=== PATIENT | male | born 1955 | race Caucasian/White ===

== ENCOUNTER 2023-02-26 18:59 | Emergency (ER) | payer MEDICARE, SELFPAY ==
[2023-02-26 19:02] VITALS: BP 106/73; PULSE 81; RESP 18; TEMP 36.3; O2SAT 98; BMI 27.9
--- NOTE | 2023-02-26 21:00 | CT_ITS ---
STUDY: CT BRAIN WITHOUT CONTRAST REASON FOR EXAM: Male, 67 years old. trauma Individualized dose optimization techniques were used for this CT. TECHNIQUE: Transaxial CT imaging of the brain was performed without administration of intravenous contrast material. COMPARISON: None FINDINGS: There are calcifications around the carotid artery. These are noted in the cavernous carotid arteries. Normal calvarium. Normal soft tissues. There is mild cerebral atrophy with widening of the extra-axial spaces and ventricular dilatation. There are areas of decreased attenuation within the white matter tracts of the supratentorial brain, consistent with microvascular disease changes. Normal basal ganglia and thalami. Normal brainstem. There is mild cerebellar atrophy. There is no intracranial hemorrhage. There are no findings of an acute ischemic infarction. There is sinus disease. ASPECTS Score for Acute Strokes: 05/08 CT/Brain/Head without Contrast IMPRESSION: There are no acute findings. Chronic involutional changes of the brain. Electronically Signed: Dileep Verdin MD at 21:24 EDT ,
--- NOTE | 2023-02-26 21:00 | ED.VIS.FALL ---
HPI HPI - Fall History of Present Illness Chief Complaint: Fall Informant: patient and family Occured/Mechanism Occurred: Hours (2) Mechanism/Context: Yes same level fall Narrative Narrative: Patient was playing a game at [employer], he was indoors on a hard floor, he reached for a ball and in doing so fell backwards hitting the back of his head on the floor very hard. He was dazed did not lose consciousness. In the 30 minutes or so after that, he was walking a little unsteady, had a headache, feeling dazed and poorly in general no vomiting or vision changes or focal neurologic symptoms. He states he is feeling better now. Takes no antiplatelet or anticoagulant medications. Denies any other injury. [facility] Medical History (Updated 02/26/23 @ 22:[address] Sergo Thakkar MD) Diabetes HTN (hypertension) Home Medications atorvastatin 20 mg tablet 20 mg PO QHS 02/26/23 [History Last Taken Unknown] dapagliflozin propanediol 5 mg tablet (Farxiga) 5 mg PO DAILY 02/26/23 [History Last Taken Unknown] lisinopril 2.5 mg tablet 2.5 mg PO DAILY 02/26/23 [History Last Taken Unknown] metformin 1,000 mg tablet 1,000 mg PO BID 02/26/23 [History Last Taken Unknown] Allergy/AdvReac Type Severity Reaction Status Date / Time No Known Allergies Allergy Verified 02/26/23 19:02 Surgical History (Updated 02/26/23 @ 21:14 by Valery Dawn) Hx of cholecystectomy Social History Smoking Status: Never smoker [facility] ED Constitutional Constitutional ED: Reports malaise; Denies chills or fever(s) Eyes Eyes: Denies change in vision or diplopia ENT ENT ED: Reports as per HPI; Denies ear pain, epistaxis, facial pain or rhinorrhea Cardiovascular Cardiovascular: Denies chest pain or palpitations Respiratory/Chest Respiratory/Chest: Denies cough or dyspnea Gastrointestinal Gastrointestinal: Denies abdominal pain, diarrhea, melena, nausea or vomiting Genitourinary Genitourinary ED: Denies dysuria or hematuria Musculoskeletal Musculoskeletal: Denies back pain, extremity pain or neck pain Integumentary Denies abscess, Abrasions, laceration or rash Neurologic Neurologic: Reports headache(s); Denies confusion, paresthesias or weakness EXAM Physical Exam Const Vital Signs: 02/26/23 19:02 Temperature 97.4 F L Temperature Source Temporal Pulse Rate 81 Respiratory Rate 18 Blood Pressure 106/73 Blood Pressure Mean 84 Pulse Ox 98 Oxygen Delivery Method Room Air Positive well nourished and well developed General Appearance ED: well developed and NAD HEENT Reports TM's clear and nasal mucous membranes and turbinates normal trauma and hematoma Hematoma Size: 2 cm, occipital Face and Sinus: Negative for facial tenderness Tympanic Membrane ED: Yes TM's clear Eyes PERRL and EOMs intact bilaterally Visual Acuity: other Other Details: no entrapment or pain with extraocular movements Neck full ROM and supple General: Negative for tenderness Chest Wall inspection of chest normal and palpation of chest normal Chest: symmetrical chest wall rise; Negative for crepitus or tenderness Resp normal respiratory effort and clear to auscultation bilaterally Percussion: other equal BS bilat Cardio no murmurs Rate: regular rate Rhythm: regular rhythm Back/Spine normal ROM Cervical Spine: Negative for cervical spine tenderness Thoracic Spine / Upper Back: Negative for thoracic spinal tenderness Lumbar Spine / Lower Back: Negative for lumbar spinal tenderness Extremity normal to inspection and full ROM General Extremety ED: Negative for tenderness Neuro oriented x3, CN's II-XII intact bilaterally, moves all extremities, no focal motor deficits and no sensory deficits noted [place] Coma Scale: document GCS findings Spontaneous Obeys Commands Oriented 15 Sensorium / Orientation: awake and alert Psych mental status grossly normal and thought process normal Skin Skin Narrative: Closed hematoma occipital scalp, without crepitance or depression Lesions: no lesions Rashes: no rashes MDM MDM MDM Narrative Medical decision making narrative: Patient older than 65, had some symptoms of concussion that are better, but I think doing a CT is reasonable given the hematoma on the occipital scalp. I reviewed the images and the report which I agree with, no acute traumatic abnormalities. Patient reassured, given Tylenol, and appropriate discharge instructions regarding potential for developing concussion symptoms in the next 24 to 48 hours. Radiography Diagnostic Testing: Clinical Impression(s) from Imaging Studies Brain CT 02/26/23 21:00 IMPRESSION: There are no acute findings. Chronic involutional changes of the brain. Electronically Signed: Dileep Verdin MD at 21:24 EDT , Discharge Plan Triage Chief Complaint: Fall ED Provider: Sergo Thakkar Dx/Rx/DC Orders Clinical Impression: Closed head injury without loss of consciousness Instructions: ED Head Injury (Adult) Prescriptions: No Action metformin 1,000 mg tablet 1,000 mg PO BID Patient Comments: TAKE 1 TABLET BY MOUTH TWICE DAILY Farxiga 5 mg tablet 5 mg PO DAILY Patient Comments: TAKE 1 TABLET BY MOUTH ONCE DAILY lisinopril 2.5 mg tablet 2.5 mg PO DAILY Patient Comments: TAKE 1 TABLET BY MOUTH ONCE DAILY atorvastatin 20 mg tablet 20 mg PO QHS Patient Comments: TAKE 1 TABLET BY MOUTH ONCE DAILY AT BEDTIME Primary Care Provider: Care Physician,No Primary Referrals: Care Physician,No Primary [Primary Care Provider] - Doctor,Your [Non-Staff] - 1 Week if not improving Disposition Disposition: Home, Self Care
[2023-02-26] MEDS: Acetaminophen 500 MG Tablet 1000 MG PO (21:08)
== END 2023-02-26 22:32 | disposition home or self-care (01) ==
PROVIDERS: Emergency Provider Emergency Medicine; Visit Provider Emergency Medicine
DX: S00.03XA Contusion of scalp, initial encounter (principal); E11.9 Type 2 diabetes mellitus without complications; W01.198A Fall on same level from slipping, tripping and stumbling with subsequent striking against other object, initial encounter; Y93.89 Activity, other specified; Y99.8 Other external cause status; Y92.833 Campsite as the place of occurrence of the external cause; I10 Essential (primary) hypertension; Z79.84 Long term (current) use of oral hypoglycemic drugs; Z79.899 Other long term (current) drug therapy
CPT/HCPCS: 70450; 99283